=== PATIENT | female | born 1965 | race Caucasian/White ===

== ENCOUNTER 2022-05-04 06:22 | Day surgery (SDC) | payer SELFPAY ==
[2022-04-28 14:23] LABS: CREATININE 1.1 mg/dL (0.5-1.5); POTASSIUM 3.7 mmol/L (3.5-5.1)
[2022-05-03 08:51] VITALS: BP 139/70
[2022-05-04] VITALS (17 sets, daily range): BP systolic 109–144; BP diastolic 66–86
[~2022-05-04] VITALS: Ht 162.6 cm; Wt 58.0 kg
[~2022-05-04 06:22] MED LIST: ESTRADIOL VG; STRONG IODINE SOLN 14ML BOTTLE ONE
[2022-05-04] MEDS ORDERED: LACTATED RINGERS 1000ML 1,000 ML IV ONE (07:15)
[2022-05-04] MEDS ORDERED: FAMOTIDINE 20MG VIAL IV ONE (07:16)
[2022-05-04] MEDS ORDERED: LIDOCAINE PF 100MG/5ML (2%) SYRINGE 5ML ONE (07:22)
[2022-05-04] MEDS ORDERED: GLYCOPYRROLATE 1 MG/5 ML SYRINGE ONE (07:23)
[2022-05-04] MEDS ORDERED: PROPOFOL 10 MG/ML 20ML VIAL IV ONE (07:23)
[2022-05-04] MEDS ORDERED: MIDAZOLAM HCL 1 MG/ML 2ML VIAL ONE (07:23)
[2022-05-04] MEDS ORDERED: FENTANYL CITRATE PF 50 MCG/1 ML 2ML VIAL ONE (07:23)
[2022-05-04] MEDS ORDERED: ROCURONIUM 10MG/1ML SYR 10 MG/ML ML ONE (07:23)
[2022-05-04] MEDS ORDERED: PHENYLEPHRINE HCL 10 MG/ML 1ML VIAL IV ONE (07:26)
[2022-05-04] MEDS ORDERED: ONDANSETRON 4MG INJ ONE (07:33)
[2022-05-04] MEDS ORDERED: LIDOCAINE 1%-EPI 1:100,000 20 ML VIAL IJ SCH (08:00)
[2022-05-04] MEDS ORDERED: NEOSTIGMINE 5MG/5ML SYR IV ONE (09:07)
== END 2022-05-04 11:04 | disposition home or self-care (01) ==
LOC: DAH 06:22
PROVIDERS: ATTEND Obstetrics & Gynecology
DX: N93.9 Abnormal uterine and vaginal bleeding, unspecified (principal); N76.89 Other specified inflammation of vagina and vulva; K21.9 Gastro-esophageal reflux disease without esophagitis; Z20.822 Contact with and (suspected) exposure to COVID-19; Z79.2 Long term (current) use of antibiotics; Z79.899 Other long term (current) drug therapy; Z90.710 Acquired absence of both cervix and uterus; Z98.890 Other specified postprocedural states
CPT/HCPCS: 80048; 87426; 36415; 57105; 88305; A6260; A4663; J7120; J3490 ×3; J3010; J2710; J2001; J2250; J2704; J2405; J2370; A4351; A4215; A4223; A4222; A4221

== ENCOUNTER 2022-09-07 06:59 | Day surgery (SDC) | payer SELFPAY ==
[2022-09-05 12:15] LABS: BASOPHILS % (AUTO) 0.8 % (0.0-5.0); EOSINOPHILS % (AUTO) 1.4 % (0.0-8.0); HEMATOCRIT 42.2 % (36-48); LYMPHOCYTES % (AUTO) 25.8 % (21.0-51.0); MEAN CORPUSCULAR HEMOGLOBIN 26.7 pg (27.0-33.0); MEAN CORPUSCULAR HGB CONC 31.8 g/dL (32.0-36.0); MEAN CORPUSCULAR VOLUME 84.2 fL (79-99); MONOCYTES % (AUTO) 6.3 % (3.0-13.0); NEUTROPHILS % (AUTO) 65.4 % (40.0-77.0); PLATELET COUNT (AUTO) 264 K/uL (130-400); RED BLOOD CELL COUNT(AUTO) 5.01 MIL/uL (4.00-5.50); RED CELL DISTRIBUTION WIDTH 12.8 % (11.0-15.5); WHITE BLOOD COUNT (AUTO) 6.2 K/uL (4.8-10.8)
[2022-09-05 12:24] LABS: CREATININE 0.8 mg/dL (0.5-1.5); POTASSIUM 4.5 mmol/L (3.5-5.1)
[2022-09-05 12:56] VITALS: BP 119/72
[2022-09-07] VITALS (18 sets, daily range): BP systolic 97–140; BP diastolic 49–74
[~2022-09-07] VITALS: Ht 162.6 cm; Wt 60.1 kg
[~2022-09-07 06:59] MED LIST changes: -STRONG IODINE SOLN 14ML BOTTLE ONE
[2022-09-07] MEDS ORDERED: LACTATED RINGERS 1000ML 1,000 ML IV ONE (07:38)
[2022-09-07] MEDS ORDERED: CEFAZOLIN SODIUM 1 GM VIAL ONE (07:38)
[2022-09-07] MEDS ORDERED: ONDANSETRON 4MG INJ ONE (07:54)
[2022-09-07] MEDS ORDERED: MIDAZOLAM HCL 1 MG/ML 2ML VIAL ONE (07:54)
[2022-09-07] MEDS ORDERED: LIDOCAINE PF 100MG/5ML (2%) SYRINGE 5ML ONE (07:54)
[2022-09-07] MEDS ORDERED: PROPOFOL 10 MG/ML 20ML VIAL IV ONE (07:54)
[2022-09-07] MEDS ORDERED: DEXAMETHASONE SOD PHOSPHATE 10MG/ML 1ML VIAL ONE (07:54)
[2022-09-07] MEDS ORDERED: FENTANYL CITRATE PF 50 MCG/1 ML 2ML VIAL ONE (07:55)
[2022-09-07] MEDS ORDERED: CEFAZOLIN SODIUM 2 GM VIAL IVPB ONE (08:10)
[2022-09-07] MEDS ORDERED: ROCURONIUM 10MG/1ML SYR 10 MG/ML ML ONE (08:18)
[2022-09-07] MEDS ORDERED: KETOROLAC 30MG VIAL (30MG/ML) ONE (08:22)
[2022-09-07] MEDS ORDERED: MEPERIDINE-PF 25 MG/ML SYG ONE (09:45)
== END 2022-09-07 11:30 | disposition home or self-care (01) ==
LOC: DAH 06:59
PROVIDERS: ATTEND Obstetrics & Gynecology
DX: N76.89 Other specified inflammation of vagina and vulva (principal); Z20.822 Contact with and (suspected) exposure to COVID-19; T83.711A Erosion of implanted vaginal mesh to surrounding organ or tissue, initial encounter; N81.10 Cystocele, unspecified; N93.9 Abnormal uterine and vaginal bleeding, unspecified; Z90.710 Acquired absence of both cervix and uterus; Z98.890 Other specified postprocedural states; Y83.8 Other surgical procedures as the cause of abnormal reaction of the patient, or of later complication, without mention of misadventure at the time of the procedure; Y92.89 Other specified places as the place of occurrence of the external cause
CPT/HCPCS: 87426; 36415; 80048; 85025; 15851; A6260; A4663; J7120 ×2; A4351; J3010; J0690 ×2; J1100; J2001; J2250; J2704; J2405; J1885; J2175; A4649; A4215; A4223; A4222; A4221